=== PATIENT | male | born 1965 | race Caucasian/White ===

== ENCOUNTER 2019-12-05 01:47 | Outpatient (CLI) | payer BC, SELFPAY ==
[2019-12-05 08:28] LABS: ALT 38 U/L (16-63); AST 21 U/L (15-37); Albumin 3.8 g/dL (3.4-5.0); Alkaline Phosphatase 46 U/L (46-116); Anion Gap 6.2 mmol/L (3-11); BUN 19 mg/dL (7-18); Bilirubin, Total 0.7 mg/dL (0.2-1.0); CO2 31.8 mmol/L (21.0-32.0); CREATININE 1.25 mg/dL (0.70-1.30); Calcium 8.9 mg/dL (8.5-10.1); Chloride 105 mmol/L (98-107); Estimated GFR 59.75 (mL/min/1.73m2); Glucose 100 mg/dL (74-106); Potassium 3.7 mmol/L (3.5-5.1); Sodium 143 mmol/L (136-145); Total Protein 6.9 g/dL (6.4-8.2)
== END 2019-12-05 02:07 ==
PROVIDERS: PCP Family Medicine; Visit Provider Family Medicine
DX: I10 Essential (primary) hypertension (principal)
CPT/HCPCS: 36415; 80053

== ENCOUNTER 2020-12-26 16:24 | Outpatient (REF) | payer BC, SELFPAY ==
--- NOTE | 2020-12-26 16:00 | SKI_PTH ---
PATIENT: Prakash Michelle LOC: [facility] U#:[id number] AGE/SX: 55/M ROOM: RE12/26/[address]: Shukri Kaplan DO : 1965 BED: DIS: 12/26/2020 SPEC #: [id number] RECD: 12/27/20 12:24 STATUS: MANDI GARCIA #: [id number] LA NENA: 12/26/20 16:[address]: Shukri Kaplan DEPT: Surgical Specimen RECD BY: Irish Escudero ENTERED: 12/27/20 12:24 SP TYPE: KAILA ARIAS DR: Niraj Marshall MD Tissues: 1 - SKIN BIOPSY(SHAVE/PUNCH) Procedures: SKIN LEVEL 4 Comments: [id number]
[2020-12-26 22:29] LABS: Anion Gap 7.8 mmol/L (3-11); BUN 20 mg/dL (7-18); CO2 27.2 mmol/L (21.0-32.0); CREATININE 1.4 mg/dL (0.70-1.30); Calcium 9.5 mg/dL (8.5-10.1); Calculated LDL 114 mg/dL (<100); Chloride 102 mmol/L (98-107); Cholesterol 185 mg/dL (<200); Estimated GFR 52.24 (mL/min/1.73m2); Glucose 88 mg/dL (74-106); HDL Cholesterol 56 mg/dL (40-60); Sodium 137 mmol/L (136-145); Triglyceride 79 mg/dL (<150)
[2020-12-27 17:19] LABS: PSA, Screening 2.1 ng/mL (0.0-3.5)
== END 2020-12-26 16:25 | disposition home or self-care (01) ==
LOC: LBN 16:24
PROVIDERS: PCP Family Medicine; Visit Provider Emergency Medicine
DX: Z00.00 Encounter for general adult medical examination without abnormal findings (principal); I10 Essential (primary) hypertension; Z12.5 Encounter for screening for malignant neoplasm of prostate; D22.5 Melanocytic nevi of trunk
CPT/HCPCS: 80048; 80061; 84153; 88305

== ENCOUNTER 2021-03-09 10:08 | Outpatient (CLI) | payer BC, SELFPAY ==
--- NOTE | 2021-03-09 10:15 | DI.RAD_ITS ---
Exam(s) XR SHOULDER RT COMPLETE 2+V EXAM: XR SHOULDER RT COMPLETE 2+V CLINICAL HISTORY: right shoulder pain. TECHNIQUE: 2D digital imaging was performed. COMPARISON: No exams were available for comparison FINDINGS: No acute fracture or dislocation. The bones are normally mineralized. The glenohumeral joint is wel l maintained. There are mild degenerative changes of the acromioclavicular joint. The soft tissues are unremarkable. IMPRESSION: No acute abnormality. DATA REPOSITORY: RADIATION DOSE DELIVERED:
--- NOTE | 2021-03-09 11:46 | DI.VRAD_ITS ---
PROCEDURE INFORMATION: Exam: XR Right Shoulder Exam date and time: 03/09/2021 10:20 AM Age: 55 years old Clinical indication: Pain; Shoulder; Right TECHNIQUE: Imaging protocol: XR Right shoulder. Views: 2 or more views. COMPARISON: No relevant prior studies available. FINDINGS: Bones/joints: Degenerative changes in the acromioclavicular joint and glenohumeral joint. There is no evidence of acute fracture.There is no evidence of malalignment or dislocation. Soft tissues: Normal. IMPRESSION: There is no evidence of acute fracture.There is no evidence of malalignment or dislocation. Dictated and Authenticated by: Dejon Hurley MD. Ordering:ENRIQUE Gauthier MD
== END 2021-03-09 10:28 ==
PROVIDERS: PCP Nurse Practitioner Family; Visit Provider Nurse Practitioner Family
DX: M25.511 Pain in right shoulder (principal); M13.811 Other specified arthritis, right shoulder
CPT/HCPCS: 73030

== ENCOUNTER 2022-01-29 01:48 | Outpatient (CLI) | payer BC, SELFPAY ==
[2022-01-29 13:52] LABS: CREATININE 1.3 mg/dL (0.70-1.30)
== END 2022-01-29 01:49 | disposition home or self-care (01) ==
LOC: LBO 01:48
PROVIDERS: PCP Nurse Practitioner Family; Visit Provider Nurse Practitioner Family
DX: N28.9 Disorder of kidney and ureter, unspecified (principal)
CPT/HCPCS: 36415; 82565

== ENCOUNTER 2024-03-10 01:12 | Outpatient (CLI) | payer BC, SELFPAY ==
[2024-03-10 18:17] LABS: CREATININE 1.4 mg/dL (0.70-1.30); Calculated LDL 92 mg/dL (<100); Cholesterol 163 mg/dL (<200); Estimated GFR 57.54 (mL/min/1.73m2); HDL Cholesterol 55 mg/dL (40-60); Potassium 3.7 mmol/L (3.5-5.1); Triglyceride 82 mg/dL (<150)
== END 2024-03-10 01:13 | disposition home or self-care (01) ==
LOC: LBO 01:12
PROVIDERS: PCP Nurse Practitioner Family; Visit Provider Nurse Practitioner Family
DX: I10 Essential (primary) hypertension (principal); Z13.220 Encounter for screening for lipoid disorders
CPT/HCPCS: 36415; 80061; 82565; 84132

== ENCOUNTER 2024-07-29 09:47 | Outpatient (CLI) | payer BC, SELFPAY ==
[2024-07-29 11:07] LABS: Uric Acid 7.6 mg/dL (3.5-7.2)
== END 2024-07-29 09:48 | disposition home or self-care (01) ==
LOC: LBO 09:49
PROVIDERS: PCP Nurse Practitioner Family; Visit Provider Nurse Practitioner Family
DX: M10.9 Gout, unspecified (principal)
CPT/HCPCS: 36415; 84550

== ENCOUNTER 2024-12-30 02:23 | Emergency (ER) | payer OTHER, SELFPAY ==
[2024-12-30 02:29] VITALS: BP 136/95; PULSE 58; RESP 20; TEMP 36.6; O2SAT 98
--- NOTE | 2024-12-30 02:29 | W.ED.GENAD ---
Discharge Plan Disposition Patient Disposition: Home Condition: Good Discharge Details Clinical Impression: Foreign body sensation, left eye Primary Care Provider: Oswaldo Price ED Provider: Eliu Soria [place] Meds and New Rx's Prescriptions: Continued colchicine 0.6 mg tablet 0.6 mg PO BID Qty: 7 3RF hydrochlorothiazide 25 mg tablet See Rx Instructions .ROUTE .COMPLEX Qty: 90 3RF Dose Instruction: TAKE 1 TABLET EVERY MORNING Rx Instructions: TAKE 1 TABLET EVERY MORNING amlodipine 10 mg tablet 10 mg PO DAILY Qty: 90 3RF Discharge Instructions Additional Instructions: You were seen in the ED for foreign body sensation in the left eye. Slit-lamp exam and fluorescein staining does not reveal any evidence of corneal abrasion and no obvious foreign body was seen. If you continue to have foreign body sensation in the morning when you wake up please follow-up with your own branding specialist or contact [facility] if unable to be seen by your own storehouse clerk/final operations technician. Return to ED for any change/loss in vision, eye pain, other concerns. Referrals: [facility] [Outside] [facility] General Mode of arrival: ambulatory. Date/Time Provider Initiated Documentation: 12/30/24 02:29. Limitations to Documentation: no limitations. Information obtained by: patient and RN notes reviewed. HPI Narrative: Patient presents to ED with foreign body sensation in the left eye. Began to notice a sensation in the left eye around 9:00 this evening. He does not recall getting anything in it per se. He has had no change in vision. Feels like it is in the upper lateral aspect. Woke up with it really bothering him this morning. He took a shower and irrigated his eyes under the shower with no relief. He has not noticed a change in vision. Denies headache. Reports that his did not see anything obvious. Related Data Home Medications ?Medication ?Instructions ?Recorded ?Confirmed hydrochlorothiazide 25 mg tablet See Rx Instructions .Route 01/14/23 12/30/24 .COMPLEX #90 tabs amlodipine 10 mg tablet 10 mg PO DAILY #90 tab-caps 02/25/24 12/30/24 colchicine 0.6 mg tablet 0.6 mg PO BID #7 tabs 07/29/24 12/30/24 Previous Rx's ?Medication ?Instructions ?Recorded hydrochlorothiazide 25 mg tablet See Rx Instructions .Route 01/14/23 .COMPLEX #90 tabs amlodipine 10 mg tablet 10 mg PO DAILY #90 tab-caps 02/25/24 colchicine 0.6 mg tablet 0.6 mg PO BID #7 tabs 07/29/24 Allergies Allergy/AdvReac Type Severity Reaction Status Date / Time No Known Allergies Allergy Verified 12/30/24 02:32 Exam Narrative Exam Narrative: Const: WDWN male in NAD. VS per triage. HEENT: NC/AT. Normal facial exam. Eyes: PERRL and EOMI. Lids without edema. No significant conjunctival injection. No obvious foreign body. Cornea clear. Neck: Supple. Trachea midline. Lungs: Normal respiratory effort. Neuro: A+O x 3. Normal speech, mentation, gait. Cranial nerves II - XII grossly intact. No gross motor or sensory deficit. Medical Decision Making Patient presenting to ED with foreign body sensation left eye. Initial exam with no obvious foreign body visualized. Pupil is reactive. Cornea is clear. Tetracaine drops applied with resolution of foreign body sensation. Upper lid everted and swiped x 2 with no foreign body visualized. Fluorescein staining done. No fluorescein uptake under [place] lamp. Slit lamp exam performed, still no obvious foreign body visualized. Cornea appears clear, no cell or flare seen. His visual acuity corrected was fine. He will be discharged home at this time. Foreign body sensation returns by morning after the tetracaine drops have worn off he should follow-up with his storehouse clerk/final operations technician or if unable to do so may contact [facility] for follow-up. Return precautions discussed and provided. Quality:SDOH Health Related Social Needs: Health related social needs food insecurity (Z59.41) PFSH All Active Problems Foreign body sensation, left eye (Acute) Renal insufficiency (Chronic) Right shoulder pain (Acute) Periodontal disease (Chronic) Alcohol consumption binge drinking (Chronic) Once or twice weekly as of January 2024. I am not concerned at this point. Medical History (Updated 12/30/24 @ 02:57 by Eliu Soria MD) Gout GERD (gastroesophageal reflux disease) Hypertension a. Well controlled on hydrochlorothiazide and amlodipine. Hyperplastic colonic polyp (12/12/15) Surgical History Status post vasectomy Status post tendon repair Family History Mother Diabetes Essential hypertension Hyperlipidemia Father , 84 Essential hypertension Cancer Sister Essential hypertension Brother Essential hypertension Sister No problems noted. Social History Smoking/Tobacco Use Status: Never Second Hand Exposure: Yes Smoking risk assessment performed?: Yes Alcohol Intake: current Alcohol Intake frequency: a few times a week Alcohol type: beer Drug use: Never Substance use type: does not use Caregiver/Support person: No Household members: spouse Housing: house Communication Needs: Corrective Lenses Do you need help understanding health information?: Never Pets and animals: Yes Pets and animals: cat(s), dog(s) and horse(s) Sexually active: Yes Do you think of yourself as: straight/heterosexual Current gender identity: male What is your relationship status?: How often do you talk on the phone with friends or family?: once per week How often do you get together with friends or relatives?: decline to answer How often do you attend hoahaoism or bahai services?: decline to answer Do you belong to any clubs or organized social groups?: decline to answer Panel score (0-1 are the most socially isolated patients): 1 What type of physical activity do you participate in: walking and weight lifting Duration: > 90 minutes/day Frequency: daily Tracy/Jainism: None Special tracy needs: No Seatbelt use: always Helmet use: Yes Helmet use: always Drive intox or ride w/intox route driver coin machines: No
[2024-12-30] MEDS: Tetracaine 0.5% 4 ML BTL OP (02:50)
[2024-12-30] MEDS: Fluorescein STRIPS 100/BOX 1 MG OP (02:51)
== END 2024-12-30 03:00 | disposition home or self-care (01) ==
PROVIDERS: Emergency Provider Emergency Medicine; PCP Nurse Practitioner Family
DX: H57.8A2 Foreign body sensation, left eye (principal); Z59.41 Food insecurity
CPT/HCPCS: 99283